=== PATIENT | female | born 1955 | race Caucasian/White ===

== ENCOUNTER 2018-02-18 12:27 | Observation (INO) ==
--- NOTE | 2018-02-18 12:39 | Emergency Department Note ---
Disposition Clinical Impression: Pneumonia Qualifiers: Pneumonia type: due to unspecified organism Laterality: right Lung location: unspecified part of lung Qualified Code(s): J18.9 - Pneumonia, unspecified organism Disposition: Home, Self-Care Condition: Fair Referrals: Eddie Holland DO [Primary Care Provider] - Forms: ED Satisfaction Letter SOB HPI - General Chief Complaint: ED Shortness of Breath/Dyspnea Stated Complaint: difficulty in breathing Time Seen by Provider: 02/18/18 12:37 Source: patient, EMS Mode of arrival: EMS Limitations: no limitations Nursing Notes Reviewed: Yes Vital Signs Reviewed: Yes - History of Present Illness Patient presents to the ED via EMS complaining of shortness of breath. She states she has been short of breath for several months but has been really sick for the past several days. She has had a dry cough as well as fever and chills , rhinorrhea and congestion. She denies any chest pain or leg swelling. No abdominal pain, nausea, vomiting, diarrhea or constipation. No sore throat. She states she has had multiple family members about been similarly sick. She also reports some body aches. She was seen at urgent care on February 15 for the symptoms and was diagnosed with bronchitis. She received IM Solu-Medrol at urgent care was prescribed azithromycin, prednisone, Flonase and Tessalon Perles for home. She states she has been taking all these medications but has continued to feel worse which is why she came to the ED today. She does have a known history of asthma and COPD as well as diabetes and hypertension. She is not a smoker. On arrival here she is febrile at 102.3. EMS states oxygen saturations were in the mid 80s on their arrival but did improve to the 90s on oxygen. On arrival here she is 91% on 3 L. She does not wear oxygen at home. She states that she does have inhalers at home that she uses regularly for her asthma and COPD. - Related Data Home Medications Medication Instructions Recorded Confirmed ALPRAZolam [Xanax 1 MG Tablet] 1 mg PO HS 03/14/16 02/17/18 Aspirin [Lo-Dose Aspirin EC] 81 mg PO DAILY 03/14/16 02/17/18 Desipramine HCl [Norpramin] 175 mg PO QPM 03/14/16 02/17/18 FLUoxetine HCl [Prozac] 20 mg PO DAILY 03/14/16 02/17/18 Oxycodone HCl/Acetaminophen 1 tab PO Q4-6H PRN 03/14/16 02/17/18 [Percocet 10-325 mg Tablet] SitaGLIPtin [Januvia] 50 mg PO DAILY 03/14/16 02/17/18 carBAMazepine [Tegretol Xr] 200 mg PO BID 03/14/16 02/17/18 Furosemide [Lasix] 40 mg PO BID 09/02/16 02/17/18 Losartan [Cozaar] 50 mg PO DAILY 09/02/16 02/17/18 Metoprolol [Lopressor] 50 mg PO BID 09/02/16 02/17/18 Potassium Chloride [K-Tab ER] 20 meq PO DAILY 09/02/16 02/17/18 amLODIPine [Norvasc] 5 mg PO DAILY 09/02/16 02/17/18 Previous Rx's Medication Instructions Recorded Acetaminophen [Tylenol] 500 mg PO Q6HR PRN #30 tablet 02/15/18 Azithromycin [Azithromycin 6-Tab 250 mg PO PER PKG DI #6 tab 02/15/18 Pack] Benzonatate [Tessalon] 200 mg PO TID PRN #45 capsule 02/15/18 Fluticasone Propionate Nasal 1 - 2 spray NS DAILY PRN #1 bottle 02/15/18 [Flonase] PredniSONE [Deltasone] 40 mg PO DAILY 5 Days #10 tablet 02/15/18 Allergies Allergy/AdvReac Type Severity Reaction Status Date / Time dulaglutide [From [facility]] AdvReac Gastrointestinal Verified 02/18/18 12:28 Upset Constitutional: Reports: fever, chills. Denies: weakness, weight change Eyes: Denies: eye pain, eye discharge, vision change ENT ED: Reports: congestion. Denies: ear pain, throat pain, dental pain, hearing loss, epistaxis, dysphagia Cardiovascular: Denies: chest pain, palpitations, dyspnea on exertion, edema, syncope Respiratory: Reports: cough, dyspnea. Denies: wheezes, hemoptysis, stridor Gastrointestinal: Denies: abdominal pain, nausea, vomiting, diarrhea, constipation, hematemesis, melena, hematochezia Genitourinary: Denies: dysuria, frequency, hematuria, discharge Musculoskeletal: Denies: back pain, neck pain, arthralgia, myalgia Integumentary: Denies: rash, abrasion, lesions Neurological: Denies: headache, weakness, numbness, paresthesias, confusion, abnormal gait, vertigo Psychiatric: Denies: anxiety, depression, suicidal thoughts, homicidal thoughts , auditory hallucinations, visual hallucinations Endocrine: Denies: fatigue Hematological/Lymphatic: Denies: easy bleeding, easy bruising Allergic/Immunologic: Denies: facial swelling, urticaria Past Medical History - Past Medical History Medical history: Reports: asthma, COPD, diabetes, hyperlipidemia, hypertension, thyroid disease Psychiatric history: Reports: anxiety - Social History Smoking Status: Never smoker Smokeless Tobacco Status: No Alcohol use: Reports: none Drug use: Reports: none Physical Exam - General Limitations: no limitations General appearance: alert, in no apparent distress, obese - Head Head exam: atraumatic, normocephalic, normal inspection - Eye Eye exam: Present: normal appearance, PERRL, EOMI - ENT ENT exam: normal exam, normal oropharynx, mucous membranes dry - Neck Neck exam: Present: normal inspection, full ROM, trachea midline - Chest Chest inspection: Present: normal inspection, symmetric chest wall rise - Respiratory Respiratory exam: Absent: respiratory distress - Expanded Respiratory Exam Location: wheezes: Left, Lower, Upper, Right, rhonchi: Left, Right, Upper, Lower - Cardiovascular Cardiovascular exam: Present: regular rate, normal rhythm, normal heart sounds - Abdominal Exam Abdominal exam: Present: soft, Non-Tender. Absent: tenderness, distention, guarding, rebound, rigidity - Extremities Exam Extremities exam: Present: normal inspection, full ROM. Absent: tenderness, pedal edema - Neurological Exam Neurological exam: Present: alert, oriented X3 - Psychiatric Psychiatric exam: Present: normal affect, normal mood - Skin Skin exam: Present: warm, dry, intact, normal color Course Course Narrative: Patient presents to the ED via EMS with worsening shortness of breath, fever and congestion with recent diagnosis of bronchitis. I suspect possibility of pneumonia or influenza given that patient is worsening with current outpatient treatment. Will perform chest x-ray, routine labs including flu swab and give a nebulizer treatment. Will also give Tylenol for her current fever. - Reevaluation(s) Reevaluation #1: Flu swab was negative. Chest x-ray shows a right-sided pneumonia. Laboratory studies show mild leukocytosis as well as some thrombocytopenia. Electrolytes are within normal limits. Fevers improving with Tylenol. Discussed with patient need for admission for further treatment of her pneumonia and she is in agreement. I have spoken to the hospitalist on-call, Dr. Grijalva, who has accepted the patient. Time: 13:59 Vital Signs Temperature 102.3 F H 02/18/18 12:29 Pulse Rate 98 02/18/18 12:29 Respiratory Rate 20 02/18/18 12:29 Blood Pressure 172/91 02/18/18 12:29 O2 Sat by Pulse Oximetry 91 02/18/18 12:29 Temperature 102.3 F H 02/18/18 12:29 Pulse Rate 101 02/18/18 12:53 Respiratory Rate 16 02/18/18 13:13 Blood Pressure 164/67 02/18/18 12:53 O2 Sat by Pulse Oximetry 95 02/18/18 13:13 Oxygen Delivery Oxygen Delivery Nasal Cannula Shortness of Breath/Dyspnea - Differential Diagnosis Likely: acute exacerbation of chronic obstructive airways disease, pneumonia - Medical Records Medical records reviewed: Yes I reviewed the patient's medical records. - Lab Data Lab results reviewed: Yes I reviewed the patient's lab results. Result diagrams: 02/18/18 13:10 02/18/18 13:10 Lab Results 02/18/18 02/18/18 02/18/18 Range/Units 13:10 13:10 13:10 WBC 11.3 H (4.3-11.1) K/mcL RBC 3.79 L (3.82-4.97) M/mcL Hgb 11.5 (11.5-15.4) g/dL Hct 34.2 L (35.3-44.9) % MCV 90.2 (83.0-100.0) fL MCH 30.3 (28.0-33.3) pg MCHC 33.6 (31.6-35.5) g/dL RDW 14.2 (11.5-14.5) % Plt Count 80 L (140-400) K/mcL MPV 9.6 (9.4-12.4) fL Immature Gran % 0.4 (0-4) % Seg Neutrophils % 81.2 % Lymphocytes % 6.5 % Monocytes % 6.0 % Eosinophils % 5.6 % Basophils % 0.3 % Neutrophils # 9.2 H (1.6-8.9) K/mcL Lymphocytes # 0.7 (0.6-4.6) K/mcL Monocytes # 0.7 (0.0-1.3) K/mcL Eosinophils # 0.6 (0.0-0.6) K/mcL Basophils # 0.0 (0.0-0.2) K/mcL Sodium 135 L (136-145) mEq/L Potassium 3.2 L (3.5-5.1) mEq/L Chloride 97 L (98-107) mEq/L Carbon Dioxide 31 H (23-29) mEq/L BUN 16 (8-23) mg/dL Creatinine 1.08 (0.60-1.20) mg/dL Est GFR ( Amer) > 60 (> 60) Est GFR (Non-Af Amer) 51 L (> 60) BUN/Creatinine Ratio 15 (6-26) Glucose 190 H (70-105) mg/dL Calculated Osmolality 286 (280-300) Lactic Acid 1.4 (0.5-2.2) mmol/L Calcium 9.0 (8.6-10.3) mg/dL B-Natriuretic Peptide (Less than 100) pg/mL 02/18/18 Range/Units 13:10 WBC (4.3-11.1) K/mcL RBC (3.82-4.97) M/mcL Hgb (11.5-15.4) g/dL Hct (35.3-44.9) % MCV (83.0-100.0) fL MCH (28.0-33.3) pg MCHC (31.6-35.5) g/dL RDW (11.5-14.5) % Plt Count (140-400) K/mcL MPV (9.4-12.4) fL Immature Gran % (0-4) % Seg Neutrophils % % Lymphocytes % % Monocytes % % Eosinophils % % Basophils % % Neutrophils # (1.6-8.9) K/mcL Lymphocytes # (0.6-4.6) K/mcL Monocytes # (0.0-1.3) K/mcL Eosinophils # (0.0-0.6) K/mcL Basophils # (0.0-0.2) K/mcL Sodium (136-145) mEq/L Potassium (3.5-5.1) mEq/L Chloride (98-107) mEq/L Carbon Dioxide (23-29) mEq/L BUN (8-23) mg/dL Creatinine (0.60-1.20) mg/dL Est GFR ( Amer) (> 60) Est GFR (Non-Af Amer) (> 60) BUN/Creatinine Ratio (6-26) Glucose (70-105) mg/dL Calculated Osmolality (280-300) Lactic Acid (0.5-2.2) mmol/L Calcium (8.6-10.3) mg/dL B-Natriuretic Peptide 353 H (Less than 100) pg/mL - Radiology Data Radiology results reviewed: Yes I reviewed the patient's radiology results. ITS Impressions Chest X-Ray 02/18/18 12:53 IMPRESSION: Airspace opacification seen in the right lung with a nodular appearance. Pneumonia could give this appearance. However, a chest CT is suggested to evaluate for pulmonary nodules D/ / Oscar Levin MD / Oscar Levin MD Interpreting Provider: Oscar Leivn MD
[2018-02-18] MEDS ORDERED: Levofloxacin 750 MG/150 ML 750 MG/150 ML BAG IVPB ONE (12:53)
[2018-02-18] MEDS ORDERED: Ipratropium/Albuterol Neb 3 ML IH ONE (12:53)
[2018-02-18] MEDS ORDERED: methylPREDNISolone 125 MG/2 ML VIAL IVP ONE (12:53)
[2018-02-18 13:19] LABS: Basophils % 0.3 %; Eosinophils # 0.6 K/mcL (0.0-0.6); Eosinophils % 5.6 %; Hematocrit 34.2 % (35.3-44.9); Hemoglobin 11.5 g/dL (11.5-15.4); Immature Granulocytes % 0.4 % (0-4); Lymphocytes # 0.7 K/mcL (0.6-4.6); Lymphocytes % 6.5 %; Mean Corpuscular HGB Conc 33.6 g/dL (31.6-35.5); Mean Corpuscular Hemoglobin 30.3 pg (28.0-33.3); Mean Corpuscular Volume 90.2 fL (83.0-100.0); Mean Platelet Volume 9.6 fL (9.4-12.4); Monocytes # 0.7 K/mcL (0.0-1.3); Neutrophils # 9.2 K/mcL (1.6-8.9); Platelet Count 80 K/mcL (140-400); Red Blood Count 3.79 M/mcL (3.82-4.97); Red Cell Distribution Width 14.2 % (11.5-14.5); Segmented Neutrophils % 81.2 %
[2018-02-18 13:37] LABS: BUN/Creatinine Ratio 15 (6-26); Blood Urea Nitrogen 16 mg/dL (8-23); Carbon Dioxide 31 mEq/L (23-29); Chloride 97 mEq/L (98-107); Glucose 190 mg/dL (70-105); Osmolality,Calculated 286 (280-300); Potassium 3.2 mEq/L (3.5-5.1); Sodium 135 mEq/L (136-145); eGFR For Non-African Americans 51 (> 60)
[2018-02-18] MEDS ORDERED: Naloxone 0.4 MG/ML INJ IVP PRN ×2 (14:36→15:29)
[2018-02-18] MEDS ORDERED: *HR* Dextrose 50 % in Water (Syg) 50 ML SYRINGE IVP PRN ×2 (14:38→15:29)
[2018-02-18] MEDS ORDERED: D5% in Water 1,000 ML IVC PRN ×2 (14:38→15:29)
[2018-02-18] MEDS ORDERED: Dextrose Gel 15 GM/37.5 ML TUBE PO PRN ×4 (14:38→15:29)
[2018-02-18] MEDS ORDERED: Fluticasone Propionate Nasal 50 MCG/SPRAY BOTTLE NS PRN ×2 (14:39→15:29)
[2018-02-18] MEDS ORDERED: Benzonatate 100 MG CAPSULE PO PRN ×2 (14:39→15:29)
[2018-02-18] MEDS ORDERED: *HR* OxyCODONE/APAP 10/325 TABLET PO PRN ×2 (14:39→15:29)
[2018-02-18] MEDS ORDERED: Insulin LISPRO 300 UNITS/3 ML VIAL SQ SCH ×3 (16:30→21:00)
[2018-02-18] MEDS: Insulin LISPRO 300 UNITS/3 ML VIAL SQ SCH (16:48)
[2018-02-18] MEDS: Furosemide 40 MG TABLET PO SCH (16:48)
[2018-02-18] MEDS ORDERED: Furosemide 40 MG TABLET PO SCH (17:00)
[2018-02-18] MEDS ORDERED: DESIPRAMINE HCL PO SCH ×2 (18:00)
[2018-02-18] MEDS ORDERED: ALPRAZolam 1 MG TABLET PO SCH ×2 (21:00)
[2018-02-19 06:06] LABS: Magnesium 2.2 mg/dL (1.6-2.6)
[2018-02-19] MEDS ORDERED: Insulin DETEMIR 100 UNIT/ML X5UNITS SQ SCH ×2 (09:00)
[2018-02-19] MEDS ORDERED: FLUoxetine 20 MG CAPSULE PO SCH ×2 (09:00)
[2018-02-19] MEDS ORDERED: NON-FORMULARY MEDICATION 1 EACH EACH (Insulin Glargine,Hum.Rec.Anlog [Basaglar Kwikpen U-1 SQ SCH (09:00)
[2018-02-19] MEDS ORDERED: *HR* SitaGLIPtin 25 MG TABLET PO SCH ×2 (09:00)
[2018-02-19] MEDS ORDERED: Aspirin Enteric Coated 81 MG Tablet PO SCH ×2 (09:00)
[2018-02-19 09:01] VITALS: BP 151/72
[2018-02-19] MEDS: Furosemide 40 MG TABLET PO SCH (09:13)
[2018-02-19] MEDS: Insulin LISPRO 300 UNITS/3 ML VIAL SQ SCH ×2 (09:42→12:09)
--- NOTE | 2018-02-19 10:49 | Internal Med History&Physical ---
Date of Encounter: 02/19/18 Time of Encounter: 10:15 Assessment and Plan (1) Pneumonia Current visit: Yes Status: Acute Chest CT showed patchy multifocal pneumonia bilaterally. She was given Rocephin in emergency room. Antibiotics and probiotics will be continued. Qualifiers: Pneumonia type: due to unspecified organism Laterality: bilateral Lung location: unspecified part of lung Qualified Code(s): J18.9 - Pneumonia, unspecified organism (2) Hypertension Current visit: No Status: Chronic Continue Cozaar and Lopressor. Qualifiers: Hypertension type: essential hypertension Qualified Code(s): I10 - Essential (primary) hypertension (3) Diabetes mellitus Current visit: No Status: Chronic Hemoglobin A1c was 6.3% on 12/06/2017. 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 (5) Iron deficiency anemia due to chronic blood loss Current visit: No Status: Acute She reports home use of ferrous sulfate although this is not listed on her home med list. Internal Medicine - H&P: HPI Chief complaint: Cough and dyspnea Admitted From: Emergency Dept Plans for Post Hospital Care: Home History of present illness: Ms. Mora is a 62 year old female who came to emergency room stating she had gone to a local urgent care on February 15 for dyspnea and cough. She was prescribed Z-Roge, prednisone, Flonase, and Tessalon. She did not feel improved after 2 days so she returned to urgent care without further intervention. When she felt no improvement the next day with increased dyspnea and cough she came to emergency room. She was felt to have pneumonia and was admitted to [facility] floor for ongoing care needs. She reports having pneumonia several years ago. Her respiratory history is significant for being a lifelong nonsmoker. She denies chronic lung disease. She has KAMILA but does not use CPAP/BiPAP. She feels improved at present time and wishes to be discharged home. 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 HEART MURMUR. SLEEP APNEA. Psychiatric history: anxiety - Past Surgical History Additional surgical history: right knee sx - Social History Smoking Status: Never smoker Smokeless Tobacco Status: No Alcohol use: none Drug use: none - Family History Mother Hx Family Respiratory Disorders: Yes (copd) Father Hx Family Cardiac Disorders: Yes ([place]) Hx Family Respiratory Disorders: Yes (COPD) Hx Family Endocrine Disorder: Yes (DM) Internal Medicine - H&P: Meds ALPRAZolam [Xanax 1 MG Tablet] 1 mg PO HS 03/14/16 [History] Aspirin [Lo-Dose Aspirin EC] 81 mg PO DAILY 03/14/16 [History] Desipramine HCl [Norpramin] 175 mg PO QPM 03/14/16 [History] FLUoxetine HCl [Prozac] 20 mg PO DAILY 03/14/16 [History] Oxycodone HCl/Acetaminophen [Percocet 10-325 mg Tablet] 1 tab PO Q4-6H PRN 03/14 [History] SitaGLIPtin [Januvia] 50 mg PO DAILY 03/14/16 [History] Furosemide [Lasix] 40 mg PO BID 09/02/16 [History] Losartan [Cozaar] 50 mg PO DAILY 09/02/16 [History] Potassium Chloride [K-Tab ER] 20 meq PO DAILY 09/02/16 [History] Azithromycin [Azithromycin 6-Tab Pack] 250 mg PO PER PKG DI #6 tab 02/15/18 [Rx] Benzonatate [Tessalon] 200 mg PO TID PRN #45 capsule 02/15/18 [Rx] Fluticasone Propionate Nasal [Flonase] 1 - 2 spray NS DAILY PRN #1 bottle [Rx] PredniSONE [Deltasone] 40 mg PO DAILY 5 Days #10 tablet 02/15/18 [Rx] Exenatide Microspheres [Bydureon Pen] 2 mg SQ QWEEK 02/18/18 [History] Insulin Glargine,Hum.rec.anlog [Basaglar Kwikpen U-100] 50 unit SQ DAILY [History] Pantoprazole Sodium [Protonix] 40 mg PO DAILY 02/18/18 [History] Desipramine [Norpramine] 50 mg PO HS 02/19/18 [History] Metoprolol [Lopressor] 100 mg PO DAILY 02/19/18 [History] carBAMazepine [Tegretol] 200 mg PO BID 02/19/18 [History] 3 Allergy/AdvReac Type Severity Reaction Status Date / Time dulaglutide [From Trulicity] AdvReac Gastrointestinal Verified 02/18/18 12:28 Upset All Systems PM: A 10-system review of systems was performed and is negative for pertinent findings except as documented above in the HPI. Review of systems: Gen.: She states her weight has decreased approximately 60 pounds in the past year, intentionally Cardiovascular: She has history of hypertension. She reports negative heart cath approximately 2010. She had echocardiogram 10/27/2017 which showed LVEF of 60-65% with reported mild LV diastolic dysfunction. The E/A ratio was 0.9. There was moderate aortic stenosis and mild aortic regurgitation. The interventricular septum and posterior wall thickness measurements were elevated at 1.30 and 1.20 cm respectively. There was LAE at 4.10 cm. She denies DVT or pulmonary embolus. Respiratory: As per history of present illness GI: She has had cholecystectomy. She denies disorders of her liver or exocrine pancreas. : She was unaware she had chronic kidney disease. She denies other kidney or bladder disorders. Neurologic: She denies large distribution strokes or seizures. Endocrine: She reports being diagnosed with DM 2 approximately age 42. She denies thyroid disease or hyperlipidemia Hematology/oncology: She has history of anemia. She denies internal malignancies or other blood disorders Psychiatric: She has anxiety and bipolar disorder. [place] skeletal: She has DJD but denies gout or other bone joint or muscle disorders. - Constitutional Vitals: Temp Pulse Resp BP Pulse Ox 98.1 F 84 17 151/72 99 02/19/18 06:00 02/19/18 09:00 02/19/18 06:00 02/19/18 09:00 02/19/18 09:00 Exam: Gen.: She is a well-developed well-nourished female resting in bed who appears in no acute distress HEENT: Head is atraumatic and normocephalic. Eyes: EOMI. There is no scleral icterus. Mouth: Mucosa is moist. Neck: Supple and nontender. There is no thyromegaly or adenopathy noted. Heart: Regular without murmurs gallops or ectopics Lungs: No wheezes, egophony or crackles are heard. Abdomen: Soft and nontender. No masses or guarding are noted. Extremities: There is no cyanosis edema or clubbing noted. Dorsalis pedis and posttibial pulses are trace to 1+ palpable bilaterally. Neurologic: Mental status: She is talkative and a good historian. Cranial nerves: Smile is symmetric. Forehead wrinkles bilaterally. Tongue protrudes midline. EOMI. Motor: There is no pronator drift. Cerebellar: Finger to nose is intact bilaterally. Skin: Warm and dry Internal Med - H&P Results - Labs CBC & Chem 7: 02/18/18 13:10 02/18/18 13:10 - Impressions ITS Impressions Chest CT 02/18/18 18:38 IMPRESSION: Patchy multifocal pneumonia involving each lung. Mild splenomegaly. RECOMMENDATIONS: Repeat CT scan in 1-2 months suggested to document complete clearing of the pulmonary abnormalities. D/ / Markie Marquis MD / Markie Marquis MD Interpreting Provider: Markie Marquis MD - VTE Reasons for not Prescribing Prophylaxis: Treatment not Indicated - Low risk for VTE
--- NOTE | 2018-02-19 11:05 | Discharge Summary ---
Date of Encounter: 02/19/18 Time of Encounter: 10:15 - Discharge Diagnosis (1) Pneumonia Priority: Primary Status: Acute Qualifiers: Pneumonia type: due to unspecified organism Laterality: bilateral Lung location: unspecified part of lung Qualified Code(s): J18.9 - Pneumonia, unspecified organism (2) Hypertension Priority: Secondary Status: Chronic Qualifiers: Hypertension type: essential hypertension Qualified Code(s): I10 - Essential (primary) hypertension (3) Diabetes mellitus Priority: Secondary Status: Chronic Qualifiers: Diabetes mellitus type: type 2 Diabetes mellitus retirement insulin use: unspecified retirement insulin use status Diabetes mellitus complication status : with unspecified complications Qualified Code(s): E11.8 - Type 2 diabetes mellitus with unspecified complications (4) Hypokalemia Priority: Secondary Status: Acute (5) Iron deficiency anemia due to chronic blood loss Priority: Secondary Status: Acute Hospital course: Ms. Mora is a 62 year old female who came to emergency room stating she had gone to a local urgent care on February 15 for dyspnea and cough. She was prescribed Z-Roge, prednisone, Flonase, and Tessalon. She did not feel improved after 2 days so she returned to urgent care without further intervention. When she felt no improvement the next day with increased dyspnea and cough she came to emergency room. She was felt to have pneumonia and was admitted to [facility] for ongoing care needs. Initial orders were written by the emergency room physician. I saw her on February 19 and performed the history physical and discharge. I reviewed her chest CT with her which showed patchy multifocal pneumonia bilaterally. She will complete the prescribed Z-Roge given her as an outpatient and also be given Ceftin 500 mg twice a day with lactobacillus for 5 days. She admitted she was not taking her potassium supplement regularly. Her PCP can follow up on the hypokalemia. She was given additional supplementation during her hospital stay. She reported home use of ferrous sulfate although this medication was not on her recorded home med list. Iron testing showed iron 15, transferrin saturation 5%, transferrin 197. Her PCP can follow up on this. She will follow with her PCP Dr. Holland within 1 week. Room air oximetry will be checked on 6 minute walk prior to discharge. - Time Spent with Patient Total time spent providing and/or coordinating discharge services: - Discharge Medications Prescriptions: Cefuroxime PO [Ceftin] 500 mg PO Q12HR #10 tablet Lactobacillus [Culturelle] 1 each PO BID #10 cap.sprink Home Medications: ALPRAZolam [Xanax 1 MG Tablet] 1 mg PO HS 03/14/16 [History] Aspirin [Lo-Dose Aspirin EC] 81 mg PO DAILY 03/14/16 [History] Desipramine HCl [Norpramin] 175 mg PO QPM 03/14/16 [History] FLUoxetine HCl [Prozac] 20 mg PO DAILY 03/14/16 [History] Oxycodone HCl/Acetaminophen [Percocet 10-325 mg Tablet] 1 tab PO Q4-6H PRN 03/14 [History] SitaGLIPtin [Januvia] 100 mg PO DAILY 03/14/16 [History] Furosemide [Lasix] 80 mg PO DAILY 09/02/16 [History] Losartan [Cozaar] 50 mg PO DAILY 09/02/16 [History] Potassium Chloride [K-Tab ER] 20 meq PO DAILY 09/02/16 [History] Azithromycin [Azithromycin 6-Tab Pack] 250 mg PO PER PKG DI #6 tab 02/15/18 [Rx] Benzonatate [Tessalon] 200 mg PO TID PRN #45 capsule 02/15/18 [Rx] Fluticasone Propionate Nasal [Flonase] 1 - 2 spray NS DAILY PRN #1 bottle [Rx] Exenatide Microspheres [Bydureon Pen] 2 mg SQ QWEEK 02/18/18 [History] Insulin Glargine,Hum.rec.anlog [Basaglar Kwikpen U-100] 50 unit SQ DAILY [History] Pantoprazole Sodium [Protonix] 40 mg PO DAILY 02/18/18 [History] Cefuroxime PO [Ceftin] 500 mg PO Q12HR #10 tablet 02/19/18 [Rx] Desipramine [Norpramine] 50 mg PO HS 02/19/18 [History] Lactobacillus [Culturelle] 1 each PO BID #10 cap.sprink 02/19/18 [Rx] Metoprolol [Lopressor] 100 mg PO DAILY 02/19/18 [History] carBAMazepine [Tegretol] 200 mg PO BID 02/19/18 [History] Allergies/Adverse Reactions: 3 Allergy/AdvReac Type Severity Reaction Status Date / Time dulaglutide [From Trulicity] AdvReac Gastrointestinal Verified 02/18/18 12:28 Upset Date of admission: 02/18/18 14:44 Primary care physician: Eddie Holland DO - Constitutional Vitals: Temp Pulse Resp BP Pulse Ox 98.1 F 84 17 151/72 99 02/19/18 06:00 02/19/18 09:00 02/19/18 06:00 02/19/18 09:00 02/19/18 09:00 - Patient Status Disposition: Home, Self-Care Condition: Fair - Discharge Instructions Follow Up With: Eddie Holland DO [Primary Care Provider] - 1 week - Diet and Activity Activity: resume usual activities as tolerated Diet: diabetic diet - VTE Reasons for not Prescribing Prophylaxis: Treatment not Indicated - Low risk for VTE
[2018-02-20] MEDS ORDERED: BYDUREON SQ SCH (09:00)
[2018-02-21] MEDS ORDERED: BYDUREON SQ SCH (09:00)
== END 2018-02-19 12:35 | disposition home or self-care (01) ==
LOC: EMEROOPIK 12:27 → INPPIK 12:27
PROVIDERS: ADMIT Internal Medicine; ATTEND Internal Medicine

== ENCOUNTER 2019-05-13 15:10 | Inpatient (IN) ==
[2019-05-13] MEDS ORDERED: 0.9 % Sodium Chloride 1,000 ML IVC ONE (15:14)
[2019-05-13 15:46] LABS: Basophils % 0.3 %; Eosinophils % 0.3 %; Hematocrit 35.3 % (35.3-44.9); Hemoglobin 12.1 g/dL (11.5-15.4); Immature Granulocytes % 0.3 % (0-4); Lymphocytes # 0.4 K/mcL (0.6-4.6); Lymphocytes % 6.4 %; Mean Corpuscular HGB Conc 34.3 g/dL (31.6-35.5); Mean Corpuscular Hemoglobin 32.1 pg (28.0-33.3); Mean Corpuscular Volume 93.6 fL (83.0-100.0); Mean Platelet Volume 10.1 fL (9.4-12.4); Monocytes # 0.4 K/mcL (0.0-1.3); Monocytes % 6.4 %; Neutrophils # 5.6 K/mcL (1.6-8.9); Red Blood Count 3.77 M/mcL (3.82-4.97); Red Cell Distribution Width 13.8 % (11.5-14.5); Segmented Neutrophils % 86.3 %; White Blood Count 6.5 K/mcL (4.3-11.1)
[2019-05-13 15:55] LABS: INR 1.2
[2019-05-13 15:58] LABS: Activated Partial Thrombo Time 32.5 Seconds (26.0-36.0)
[2019-05-13 16:01] LABS: Platelet Count 59 K/mcL (140-400)
[2019-05-13 16:06] LABS: Alanine Aminotransferase 16 Units/L (7-52); Albumin 3.4 g/dL (3.5-5.7); Albumin/Globulin Ratio 0.8 (1.1-2.2); Alkaline Phosphatase 71 Units/L (34-104); Aspartate Amino Transferase 31 Units/L (13-39); BUN/Creatinine Ratio 16 (6-26); Bilirubin,Direct 0.3 mg/dL (0.0-0.2); Bilirubin,Indirect 0.6 mg/dL (0.0-1.0); Bilirubin,Total 0.9 mg/dL (0.3-1.0); Blood Urea Nitrogen 22 mg/dL (8-23); Calcium 9.4 mg/dL (8.6-10.3); Carbon Dioxide 29 mEq/L (23-29); Chloride 96 mEq/L (98-107); Ethanol < 10 mg/dL (Less than 10); Globulin 4.1 g/dL (2.4-3.5); Glucose 242 mg/dL (70-105); Osmolality,Calculated 287 (280-300); Potassium 3.8 mEq/L (3.5-5.1); Sodium 133 mEq/L (136-145); Total Protein 7.5 g/dL (6.4-8.9); eGFR For African Americans 47 (> 60); eGFR For Non-African Americans 39 (> 60)
[2019-05-13 16:09] LABS: Troponin I < 0.03 ng/mL (< 0.04)
[2019-05-13 16:18] LABS: Platelet Estimate Marked Decrease (Normal)
[2019-05-13 16:27] LABS: Bilirubin,Urine Negative (Negative); Blood,Urine Negative (Negative); Clarity,Urine Clear (Clear); Color,Urine Yellow (Yellow); Glucose,Urine (UA) Normal (Normal); Ketones,Urine Negative (Negative); Leukocyte Esterase,Urine Negative (Negative); Nitrite,Urine Negative (Negative); Protein,Urine Negative (Neg-Trace); Urobilinogen,Urine Normal (Normal)
[2019-05-13 17:15] LABS: Amphetamine Screen,Urine Negative ng/mL (Cutoff=1000); Barbiturate Screen,Urine Negative ng/mL (Cutoff=200); Benzodiazepines Screen,Urine Negative ng/mL (Cutoff=200); Cannabinoid Screen,Urine Negative ng/mL (Cutoff = 50); Cocaine Screen,Urine Negative ng/mL (Cutoff= 300); Opiate Screen,Urine Negative ng/mL (Cutoff=300); Phencyclidine Screen,Urine Negative ng/mL (Cutoff=25)
[2019-05-13 17:25] LABS: ABG Base Excess 2 mEq/L (-2 to 3); ABG HCO3 25 mEq/L (21-27); ABG Oxygen Saturation 93 % (95-98); ABG PCO2 35 mmHg (35-45); ABG PH 7.47 pH Units (7.32-7.45); ABG PO2 63 mmHg (85-104); ABG TCO2 26 mEq/L (20-26)
[2019-05-13] MEDS ORDERED: Ondansetron ODT 4 MG TAB.RAPDIS SL PRN (18:49)
[2019-05-13] MEDS ORDERED: D5% in Water 1,000 ML IVC PRN (19:41)
[2019-05-13] MEDS ORDERED: Dextrose Gel 15 GM/37.5 ML TUBE PO PRN ×2 (19:41)
[2019-05-13] MEDS ORDERED: *HR* Dextrose 50 % in Water (Syg) 50 ML SYRINGE IVP PRN (19:41)
[2019-05-13] MEDS ORDERED: Ipratropium/Albuterol Neb 3 ML IH PRN (19:50)
[2019-05-13] MEDS ORDERED: 0.9 % Sodium Chloride 1,000 ML ONE (21:19)
[2019-05-13] MEDS: CEFTRIAXONE IVPB SCH (21:33)
[2019-05-13] MEDS: SODIUM CHLORIDE MINI 0.9% IVPB SCH (21:33)
[2019-05-13] MEDS: 0.9 % Sodium Chloride 1,000 ML IVC SCH (21:35)
[2019-05-13] MEDS: Azithromycin 500 MG in 0.9 % Sodium Chloride 250 ML IVPB SCH (21:35)
[2019-05-13] MEDS: Insulin LISPRO 300 UNITS/3 ML VIAL SQ SCH ×2 (22:00→22:01)
[2019-05-14] MEDS: 0.9 % Sodium Chloride 1,000 ML IVC SCH ×3 (02:19→20:27)
[2019-05-14] MEDS ORDERED: Acetaminophen 650 MG RECTAL SUPP RC PRN (05:04)
[2019-05-14] MEDS ORDERED: Acetaminophen IV 1,000 MG/100 ML INFUS..BTL IVPB ONE (05:12)
[2019-05-14] MEDS ORDERED: Acetaminophen IV 1,000 MG/100 ML INFUS..BTL ONE (05:40)
[2019-05-14] MEDS: *HR* Enoxaparin 40 MG/0.4 ML SYRINGE SQ SCH (05:46)
[2019-05-14 06:22] LABS: Hematocrit 30.1 % (35.3-44.9); Hemoglobin 10.3 g/dL (11.5-15.4); Mean Corpuscular HGB Conc 34.2 g/dL (31.6-35.5); Mean Corpuscular Hemoglobin 31.7 pg (28.0-33.3); Mean Corpuscular Volume 92.6 fL (83.0-100.0); Red Blood Count 3.25 M/mcL (3.82-4.97); Red Cell Distribution Width 13.3 % (11.5-14.5); White Blood Count 6.8 K/mcL (4.3-11.1)
[2019-05-14 06:26] LABS: Platelet Count 49 K/mcL (140-400)
[2019-05-14 06:42] LABS: Albumin 2.9 g/dL (3.5-5.7); Albumin/Globulin Ratio 0.8 (1.1-2.2); Bilirubin,Total 0.9 mg/dL (0.3-1.0); Calcium 8.8 mg/dL (8.6-10.3); Globulin 3.5 g/dL (2.4-3.5); Potassium 3.5 mEq/L (3.5-5.1); Total Protein 6.4 g/dL (6.4-8.9)
[2019-05-14] MEDS ORDERED: Lactulose Oral Soln 20 GM/30 ML UDC PO SCH (07:45)
[2019-05-14] MEDS ORDERED: 0.9 % Sodium Chloride 500 ML IV ONE ×2 (07:46→11:00)
[2019-05-14] MEDS: SODIUM CHLORIDE MINI 0.9% IVPB SCH (08:41)
[2019-05-14] MEDS: CEFTRIAXONE IVPB SCH (08:41)
[2019-05-14] MEDS: Lactulose Oral Soln 20 GM/30 ML UDC PO SCH ×3 (08:50→20:23)
[2019-05-14] MEDS: Insulin LISPRO 300 UNITS/3 ML VIAL SQ SCH ×4 (08:51→20:38)
[2019-05-14] MEDS ORDERED: *HR* Dextrose 50 % in Water (Vial) 50 ML VIAL IVP PRN (09:00)
[2019-05-14 10:54] LABS: Adenovirus Not Detected (Not Detect); Bordetella Pertussis Not Detected (Not Detect); Chlamydophila pneumoniae Not Detected (Not Detect); Coronavirus 229E Not Detected (Not Detect); Coronavirus HKU1 Not Detected (Not Detect); Coronavirus NL63 Not Detected (Not Detect); Coronavirus OC43 Not Detected (Not Detect); Human Metapneumovirus Not Detected (Not Detect); Human Rhinovirus/Enterovirus Not Detected (Not Detect); Influenza A Subtype 2009 H1 Not Detected (Not Detect); Influenza A Untypeable Not Detected (Not Detect); Influenza B Not Detected (Not Detect); Mycoplasma pneumoniae Not Detected (Not Detect); Parainfluenza Virus 1 Not Detected (Not Detect); Parainfluenza Virus 2 Not Detected (Not Detect); Parainfluenza Virus 3 Not Detected (Not Detect); Parainfluenza Virus 4 Not Detected (Not Detect); Respiratory Syncytial Virus Not Detected (Not Detect)
[2019-05-14 11:15] LABS: Enterococcus by PCR Not Detected (Not Detect); Staphylococcus aureus by PCR Not Detected (Not Detect); Staphylococcus by PCR Not Detected (Not Detect); Streptococcus agalactiae(B)PCR Not Detected (Not Detect); blaKPC Carbapenem-Resist Gene Not Detected (Not Detect); mecA Methicillin-Resist Gene Not Detected (Not Detect); vanA/B Vancomycin-Resist Genes Not Detected (Not Detect)
[2019-05-14 11:16] LABS: Acinetobacter baumannii by PCR Not Detected (Not Detect); Candida albicans by PCR Not Detected (Not Detect); Candida glabrata by PCR Not Detected (Not Detect); Candida krusei by PCR Not Detected (Not Detect); Candida parapsilosis by PCR Not Detected (Not Detect); Candida tropicalis by PCR Not Detected (Not Detect); Enterobacter cloacae Cmplx PCR Not Detected (Not Detect); Enterobacteriaceae by PCR Not Detected (Not Detect); Escherichia coli by PCR Not Detected (Not Detect); Klebsiella oxytoca by PCR Not Detected (Not Detect); Klebsiella pneumoniae by PCR Not Detected (Not Detect); Proteus by PCR Not Detected (Not Detect); Pseudomonas aeruginosa by PCR Not Detected (Not Detect); Serratia marcescens by PCR Not Detected (Not Detect); Streptococcus pneumoniae PCR DETECTED (Not Detect); Streptococcus pyogenes (A) PCR Not Detected (Not Detect)
[2019-05-14] MEDS ORDERED: 0.9 % Sodium Chloride 1,000 ML ONE (20:18)
[2019-05-14] MEDS: Azithromycin 500 MG in 0.9 % Sodium Chloride 250 ML IVPB SCH (20:32)
[2019-05-15] MEDS: 0.9 % Sodium Chloride 1,000 ML IVC SCH (03:22)
[2019-05-15] MEDS: *HR* Enoxaparin 40 MG/0.4 ML SYRINGE SQ SCH (04:56)
[2019-05-15 06:34] LABS: Hemoglobin 10.2 g/dL (11.5-15.4); Mean Corpuscular HGB Conc 32.9 g/dL (31.6-35.5); Mean Corpuscular Hemoglobin 31.3 pg (28.0-33.3); Mean Corpuscular Volume 95.1 fL (83.0-100.0); Mean Platelet Volume 9.3 fL (9.4-12.4); Red Blood Count 3.26 M/mcL (3.82-4.97); Red Cell Distribution Width 13.8 % (11.5-14.5); White Blood Count 5.2 K/mcL (4.3-11.1)
[2019-05-15 06:50] LABS: Platelet Count 44 K/mcL (140-400)
[2019-05-15 06:59] LABS: BUN/Creatinine Ratio 14 (6-26); Blood Urea Nitrogen 15 mg/dL (8-23); Calcium 8.8 mg/dL (8.6-10.3); Carbon Dioxide 27 mEq/L (23-29); Chloride 105 mEq/L (98-107); Glucose 218 mg/dL (70-105); Osmolality,Calculated 291 (280-300); Potassium 3.5 mEq/L (3.5-5.1); Sodium 137 mEq/L (136-145); eGFR For African Americans > 60 (> 60); eGFR For Non-African Americans 51 (> 60)
[2019-05-15] MEDS: Insulin LISPRO 300 UNITS/3 ML VIAL SQ SCH ×4 (08:22→21:05)
[2019-05-15] MEDS: Lactulose Oral Soln 20 GM/30 ML UDC PO SCH ×2 (08:23→20:43)
[2019-05-15] MEDS: cefTRIAXone 2,000 MG in Water for inj. (sterile) 20 ML IVPB SCH (09:55)
[2019-05-15] MEDS ORDERED: ALPRAZolam 1 MG TABLET PO PRN (17:47)
[2019-05-15] MEDS: carBAMazepine 200 MG TABLET PO SCH (20:43)
[2019-05-15] MEDS: Azithromycin 500 MG in 0.9 % Sodium Chloride 250 ML IVPB SCH (20:43)
[2019-05-16] MEDS: *HR* Enoxaparin 40 MG/0.4 ML SYRINGE SQ SCH (05:16)
[2019-05-16 07:05] LABS: Hematocrit 30.4 % (35.3-44.9); Hemoglobin 10.1 g/dL (11.5-15.4); Mean Corpuscular HGB Conc 33.2 g/dL (31.6-35.5); Mean Corpuscular Hemoglobin 31.3 pg (28.0-33.3); Mean Corpuscular Volume 94.1 fL (83.0-100.0); Mean Platelet Volume 10.2 fL (9.4-12.4); Red Blood Count 3.23 M/mcL (3.82-4.97); Red Cell Distribution Width 13.5 % (11.5-14.5); White Blood Count 4.2 K/mcL (4.3-11.1)
[2019-05-16 07:21] LABS: Platelet Count 58 K/mcL (140-400)
[2019-05-16 07:24] LABS: BUN/Creatinine Ratio 13 (6-26); Blood Urea Nitrogen 12 mg/dL (8-23); Carbon Dioxide 27 mEq/L (23-29); Chloride 107 mEq/L (98-107); Glucose 201 mg/dL (70-105); Osmolality,Calculated 293 (280-300); Potassium 3.8 mEq/L (3.5-5.1); Sodium 139 mEq/L (136-145); eGFR For African Americans > 60 (> 60); eGFR For Non-African Americans 60 (> 60)
[2019-05-16] MEDS ORDERED: Furosemide 40 MG TABLET PO SCH (08:00)
[2019-05-16] MEDS: Lactulose Oral Soln 20 GM/30 ML UDC PO SCH (08:06)
[2019-05-16] MEDS: cefTRIAXone 2,000 MG in Water for inj. (sterile) 20 ML IVPB SCH (08:06)
[2019-05-16] MEDS: Insulin LISPRO 300 UNITS/3 ML VIAL SQ SCH (08:07)
[2019-05-16] MEDS: carBAMazepine 200 MG TABLET PO SCH (08:07)
[2019-05-16] MEDS ORDERED: FLUoxetine 20 MG CAPSULE PO SCH (09:00)
[2019-05-16 10:31] VITALS: BP 144/64
== END 2019-05-16 12:10 | disposition home or self-care (01) | DRG 194 ==
LOC: INPPIK 15:10 → EMEROOPIK 15:10 → INPPIK 19:36
PROVIDERS: ADMIT Family Medicine; ATTEND Family Medicine

== ENCOUNTER 2019-05-25 03:00 | Inpatient (IN) ==
[2019-05-25] MEDS ORDERED: Furosemide 40 MG/4 ML VIAL IVP ONE (03:14)
[2019-05-25] MEDS ORDERED: Ipratropium/Albuterol Neb 3 ML IH ONE (03:14)
[2019-05-25 03:57] LABS: Basophils % 0.3 %; Eosinophils % 0.4 %; Hemoglobin 10.2 g/dL (11.5-15.4); Immature Granulocytes % 0.5 % (0-4); Lymphocytes # 0.5 K/mcL (0.6-4.6); Lymphocytes % 5.2 %; Mean Corpuscular Volume 91.2 fL (83.0-100.0); Mean Platelet Volume 9.9 fL (9.4-12.4); Monocytes # 0.6 K/mcL (0.0-1.3); Monocytes % 5.6 %; Neutrophils # 8.6 K/mcL (1.6-8.9); Red Blood Count 3.29 M/mcL (3.82-4.97); Red Cell Distribution Width 13.4 % (11.5-14.5); White Blood Count 9.8 K/mcL (4.3-11.1)
[2019-05-25 04:12] LABS: Platelet Count 72 K/mcL (140-400)
[2019-05-25 04:20] LABS: Alanine Aminotransferase 12 Units/L (7-52); Albumin 2.9 g/dL (3.5-5.7); Albumin/Globulin Ratio 0.8 (1.1-2.2); Alkaline Phosphatase 52 Units/L (34-104); Aspartate Amino Transferase 25 Units/L (13-39); BUN/Creatinine Ratio 18 (6-26); Bilirubin,Total 1.1 mg/dL (0.3-1.0); Blood Urea Nitrogen 17 mg/dL (8-23); Calcium 8.7 mg/dL (8.6-10.3); Carbon Dioxide 28 mEq/L (23-29); Chloride 100 mEq/L (98-107); Globulin 3.8 g/dL (2.4-3.5); Glucose 170 mg/dL (70-105); Osmolality,Calculated 286 (280-300); Potassium 4.2 mEq/L (3.5-5.1); Sodium 135 mEq/L (136-145); Total Protein 6.7 g/dL (6.4-8.9); eGFR For African Americans > 60 (> 60); eGFR For Non-African Americans > 60 (> 60)
[2019-05-25 04:39] LABS: Bilirubin,Urine Negative (Negative); Blood,Urine Negative (Negative); Clarity,Urine Clear (Clear); Color,Urine Yellow (Yellow); Glucose,Urine (UA) Normal (Normal); Ketones,Urine Negative (Negative); Leukocyte Esterase,Urine Negative (Negative); Nitrite,Urine Negative (Negative); PH,Urine 7.5 pH Units (5.0-8.0); Protein,Urine Negative (Neg-Trace); Urobilinogen,Urine Normal (Normal)
[2019-05-25] MEDS ORDERED: Isovue-370 500 ML BOTTLE IVP ONE (05:47)
[2019-05-25] MEDS ORDERED: cefTRIAXone 1,000 MG in 0.9 % Sodium Chloride Mini Bag 100 ML IVPB ONE (07:05)
[2019-05-25] MEDS ORDERED: Azithromycin 500 MG in 0.9 % Sodium Chloride 250 ML IVPB ONE (07:05)
[2019-05-25] MEDS ORDERED: Lactulose Oral Soln 20 GM/30 ML UDC PO PRN (12:56)
[2019-05-25] MEDS ORDERED: *HR* OxyCODONE/APAP 10/325 TABLET PO PRN (12:56)
[2019-05-25] MEDS ORDERED: ALPRAZolam 1 MG TABLET PO PRN (12:56)
[2019-05-25] MEDS ORDERED: 0.9 % Sodium Chloride 1,000 ML IVC SCH (13:00)
[2019-05-25] MEDS ORDERED: Insulin DETEMIR 100 UNIT/ML X5UNITS SQ SCH (13:00)
[2019-05-25] MEDS ORDERED: Mag Hydrox/Al Hydrox/Simeth 30 ML UDC PO PRN (13:00)
[2019-05-25] MEDS ORDERED: Aspirin Enteric Coated 81 MG Tablet PO SCH (13:00)
[2019-05-25] MEDS ORDERED: Naloxone 0.4 MG/ML INJ IVP PRN (13:00)
[2019-05-25] MEDS ORDERED: Ondansetron ODT 4 MG TAB.RAPDIS SL PRN (13:00)
[2019-05-25] MEDS ORDERED: Dextrose Gel 15 GM/37.5 ML TUBE PO PRN ×2 (13:20)
[2019-05-25] MEDS ORDERED: *HR* Dextrose 50 % in Water (Vial) 50 ML VIAL IVP PRN (13:20)
[2019-05-25] MEDS ORDERED: D5% in Water 1,000 ML IVC PRN (13:20)
[2019-05-25] MEDS: FLUoxetine 20 MG CAPSULE PO SCH (13:41)
[2019-05-25] MEDS: Aspirin Enteric Coated 81 MG Tablet PO SCH (14:12)
[2019-05-25] MEDS: carBAMazepine 200 MG TABLET PO SCH ×2 (14:21→20:20)
[2019-05-25] MEDS: Insulin LISPRO 300 UNITS/3 ML VIAL SQ SCH ×2 (17:35→20:19)
[2019-05-25] MEDS: Ipratropium/Albuterol Neb 3 ML IH PRN ×2 (18:41→21:36)
[2019-05-25] MEDS: DESIPRAMINE 50 MG PO SCH (20:20)
[2019-05-25] MEDS ORDERED: carBAMazepine 200 MG TABLET PO SCH (21:00)
[2019-05-25] MEDS: ALPRAZolam 1 MG TABLET PO PRN (21:16)
[2019-05-26] MEDS: Azithromycin 500 MG in 0.9 % Sodium Chloride 250 ML IVPB SCH (06:02)
[2019-05-26] MEDS: cefTRIAXone 2,000 MG in Water for inj. (sterile) 20 ML IVP SCH (06:02)
[2019-05-26 07:46] LABS: Basophils % 0.4 %; Eosinophils # 0.2 K/mcL (0.0-0.6); Eosinophils % 2.1 %; Hematocrit 30.6 % (35.3-44.9); Immature Granulocytes % 0.6 % (0-4); Lymphocytes # 0.8 K/mcL (0.6-4.6); Lymphocytes % 10.5 %; Mean Corpuscular HGB Conc 32.7 g/dL (31.6-35.5); Mean Corpuscular Hemoglobin 30.6 pg (28.0-33.3); Mean Corpuscular Volume 93.6 fL (83.0-100.0); Mean Platelet Volume 9.4 fL (9.4-12.4); Monocytes # 0.5 K/mcL (0.0-1.3); Monocytes % 7.4 %; Neutrophils # 5.6 K/mcL (1.6-8.9); Red Blood Count 3.27 M/mcL (3.82-4.97); Red Cell Distribution Width 13.7 % (11.5-14.5); White Blood Count 7.1 K/mcL (4.3-11.1)
[2019-05-26 07:52] LABS: Platelet Count 79 K/mcL (140-400)
[2019-05-26] MEDS: FLUoxetine 20 MG CAPSULE PO SCH (08:00)
[2019-05-26] MEDS: Aspirin Enteric Coated 81 MG Tablet PO SCH (08:01)
[2019-05-26] MEDS: Ipratropium/Albuterol Neb 3 ML IH PRN ×2 (08:01→11:29)
[2019-05-26] MEDS: levoFLOXacin 500 MG TABLET PO SCH (08:01)
[2019-05-26] MEDS: carBAMazepine 200 MG TABLET PO SCH ×2 (08:01→20:47)
[2019-05-26 08:02] LABS: BUN/Creatinine Ratio 16 (6-26); Blood Urea Nitrogen 17 mg/dL (8-23); Calcium 8.7 mg/dL (8.6-10.3); Carbon Dioxide 28 mEq/L (23-29); Chloride 102 mEq/L (98-107); Glucose 167 mg/dL (70-105); Osmolality,Calculated 287 (280-300); Potassium 4.4 mEq/L (3.5-5.1); Sodium 136 mEq/L (136-145); eGFR For African Americans > 60 (> 60); eGFR For Non-African Americans 53 (> 60)
[2019-05-26] MEDS: *HR* Enoxaparin 40 MG/0.4 ML SYRINGE SQ SCH (08:03)
[2019-05-26] MEDS: Insulin DETEMIR 100 UNIT/ML X5UNITS SQ SCH (08:05)
[2019-05-26] MEDS: Insulin LISPRO 300 UNITS/3 ML VIAL SQ SCH ×4 (08:06→20:50)
[2019-05-26 10:14] LABS: Adenovirus Not Detected (Not Detect); Bordetella Pertussis Not Detected (Not Detect); Chlamydophila pneumoniae Not Detected (Not Detect); Coronavirus 229E Not Detected (Not Detect); Coronavirus HKU1 Not Detected (Not Detect); Coronavirus NL63 Not Detected (Not Detect); Coronavirus OC43 Not Detected (Not Detect); Human Metapneumovirus Not Detected (Not Detect); Human Rhinovirus/Enterovirus Not Detected (Not Detect); Influenza A Subtype 2009 H1 Not Detected (Not Detect); Influenza A Untypeable Not Detected (Not Detect); Influenza B Not Detected (Not Detect); Mycoplasma pneumoniae Not Detected (Not Detect); Parainfluenza Virus 1 Not Detected (Not Detect); Parainfluenza Virus 2 Not Detected (Not Detect); Parainfluenza Virus 3 Not Detected (Not Detect); Parainfluenza Virus 4 Not Detected (Not Detect); Respiratory Syncytial Virus Not Detected (Not Detect)
[2019-05-26] MEDS: Furosemide 40 MG TABLET PO SCH (16:30)
[2019-05-26] MEDS: DESIPRAMINE 50 MG PO SCH (20:51)
[2019-05-27] MEDS: cefTRIAXone 2,000 MG in Water for inj. (sterile) 20 ML IVP SCH (05:57)
[2019-05-27] MEDS: Azithromycin 500 MG in 0.9 % Sodium Chloride 250 ML IVPB SCH (05:57)
[2019-05-27] MEDS: Insulin LISPRO 300 UNITS/3 ML VIAL SQ SCH ×4 (07:39→20:30)
[2019-05-27] MEDS: *HR* Enoxaparin 40 MG/0.4 ML SYRINGE SQ SCH (08:10)
[2019-05-27 08:11] LABS: Hemoglobin 9.5 g/dL (11.5-15.4); Mean Corpuscular HGB Conc 32.8 g/dL (31.6-35.5); Mean Corpuscular Hemoglobin 30.7 pg (28.0-33.3); Mean Corpuscular Volume 93.9 fL (83.0-100.0); Mean Platelet Volume 9.6 fL (9.4-12.4); Red Blood Count 3.09 M/mcL (3.82-4.97); Red Cell Distribution Width 13.7 % (11.5-14.5); White Blood Count 5.6 K/mcL (4.3-11.1)
[2019-05-27] MEDS: levoFLOXacin 500 MG TABLET PO SCH (08:11)
[2019-05-27] MEDS: Aspirin Enteric Coated 81 MG Tablet PO SCH (08:11)
[2019-05-27] MEDS: FLUoxetine 20 MG CAPSULE PO SCH (08:11)
[2019-05-27] MEDS: carBAMazepine 200 MG TABLET PO SCH ×2 (08:11→20:07)
[2019-05-27] MEDS: Insulin DETEMIR 100 UNIT/ML X5UNITS SQ SCH (08:12)
[2019-05-27] MEDS: Furosemide 40 MG TABLET PO SCH ×2 (08:12→16:15)
[2019-05-27 08:14] LABS: Platelet Count 85 K/mcL (140-400)
[2019-05-27 08:26] LABS: BUN/Creatinine Ratio 17 (6-26); Blood Urea Nitrogen 18 mg/dL (8-23); Calcium 8.7 mg/dL (8.6-10.3); Carbon Dioxide 29 mEq/L (23-29); Chloride 104 mEq/L (98-107); Glucose 101 mg/dL (70-105); Osmolality,Calculated 288 (280-300); Potassium 4.3 mEq/L (3.5-5.1); Sodium 138 mEq/L (136-145); eGFR For African Americans > 60 (> 60); eGFR For Non-African Americans 50 (> 60)
[2019-05-27] MEDS: Ipratropium/Albuterol Neb 3 ML IH PRN (19:16)
[2019-05-27] MEDS: DESIPRAMINE 50 MG PO SCH (20:07)
[2019-05-28] MEDS: ALPRAZolam 1 MG TABLET PO PRN (01:33)
[2019-05-28] MEDS: cefTRIAXone 2,000 MG in Water for inj. (sterile) 20 ML IVP SCH (06:30)
[2019-05-28] MEDS: Azithromycin 500 MG in 0.9 % Sodium Chloride 250 ML IVPB SCH (06:31)
[2019-05-28] MEDS: Aspirin Enteric Coated 81 MG Tablet PO SCH (08:55)
[2019-05-28] MEDS: FLUoxetine 20 MG CAPSULE PO SCH (08:55)
[2019-05-28] MEDS: levoFLOXacin 500 MG TABLET PO SCH (08:56)
[2019-05-28] MEDS: Furosemide 40 MG TABLET PO SCH (08:56)
[2019-05-28] MEDS: carBAMazepine 200 MG TABLET PO SCH (08:56)
[2019-05-28] MEDS: *HR* Enoxaparin 40 MG/0.4 ML SYRINGE SQ SCH ×2 (08:56→09:02)
[2019-05-28] MEDS: Insulin DETEMIR 100 UNIT/ML X5UNITS SQ SCH (08:57)
[2019-05-28] MEDS: Insulin LISPRO 300 UNITS/3 ML VIAL SQ SCH (08:57)
[2019-05-28 09:43] VITALS: BP 139/62
[2019-05-28 09:45] LABS: Hematocrit 29.4 % (35.3-44.9); Hemoglobin 9.7 g/dL (11.5-15.4); Mean Corpuscular Hemoglobin 30.4 pg (28.0-33.3); Mean Corpuscular Volume 92.2 fL (83.0-100.0); Mean Platelet Volume 9.6 fL (9.4-12.4); Platelet Count 103 K/mcL (140-400); Red Blood Count 3.19 M/mcL (3.82-4.97); Red Cell Distribution Width 13.2 % (11.5-14.5); White Blood Count 5.4 K/mcL (4.3-11.1)
== END 2019-05-28 12:28 | disposition home or self-care (01) | DRG 291 ==
LOC: INPPIK 03:00 → EMEROOPIK 03:00 → INPPIK 09:10
PROVIDERS: ADMIT Family Medicine; ATTEND Nurse Practitioner Acute Care

== ENCOUNTER 2020-03-01 15:10 | Inpatient (IN) ==
[2020-03-01] MEDS ORDERED: 0.9 % Sodium Chloride 500 ML IVC ONE (15:22)
[2020-03-01 15:49] LABS: Basophils % 0.5 %; Eosinophils # 0.2 K/mcL (0.0-0.6); Eosinophils % 1.9 %; Hematocrit 33.1 % (35.3-44.9); Hemoglobin 11.1 g/dL (11.5-15.4); Immature Granulocytes % 0.6 % (0-4); Lymphocytes % 11.9 %; Mean Corpuscular HGB Conc 33.5 g/dL (31.6-35.5); Mean Corpuscular Hemoglobin 31.4 pg (28.0-33.3); Mean Corpuscular Volume 93.5 fL (83.0-100.0); Mean Platelet Volume 10.1 fL (9.4-12.4); Monocytes # 0.9 K/mcL (0.0-1.3); Monocytes % 10.5 %; Neutrophils # 6.3 K/mcL (1.6-8.9); Platelet Count 103 K/mcL (140-400); Red Blood Count 3.54 M/mcL (3.82-4.97); Red Cell Distribution Width 15.2 % (11.5-14.5); Segmented Neutrophils % 74.6 %; White Blood Count 8.4 K/mcL (4.3-11.1)
[2020-03-01 15:55] LABS: Bilirubin,Urine Small (Negative); Blood,Urine Negative (Negative); Clarity,Urine Slightly Cloudy (Clear); Color,Urine Yellow (Yellow); Glucose,Urine (UA) Normal (Normal); Ketones,Urine Trace mg/dL (Negative); Leukocyte Esterase,Urine Trace (Negative); Nitrite,Urine Negative (Negative); Protein,Urine Negative (Neg-Trace); Urobilinogen,Urine Normal (Normal)
[2020-03-01 15:59] LABS: INR 1.5; Prothrombin Time 17.4 Seconds (9.4-12.1)
[2020-03-01 16:00] LABS: Activated Partial Thrombo Time 30.4 Seconds (26.0-36.0)
[2020-03-01 16:02] LABS: Bacteria,Urine Moderate per hpf (None-Few); Hyaline Casts,Urine Moderate per lpf (None Seen); RBC,Urine 0-3 per hpf (0-3); Squamous Epithelial Cell,Urine Few per hpf (None-Few)
[2020-03-01 16:06] LABS: Alanine Aminotransferase 10 Units/L (7-52); Albumin 2.8 g/dL (3.5-5.7); Albumin/Globulin Ratio 0.7 (1.1-2.2); Alkaline Phosphatase 53 Units/L (34-104); Aspartate Amino Transferase 31 Units/L (13-39); BUN/Creatinine Ratio 13 (6-26); Bilirubin,Total 1.2 mg/dL (0.3-1.0); Blood Urea Nitrogen 27 mg/dL (8-23); Calcium 8.9 mg/dL (8.6-10.3); Carbon Dioxide 29 mEq/L (23-29); Chloride 99 mEq/L (98-107); Creatine Kinase 101 Units/L (30-223); Globulin 4.3 g/dL (2.4-3.5); Glucose 160 mg/dL (70-105); Osmolality,Calculated 295 (280-300); Sodium 138 mEq/L (136-145); Total Protein 7.1 g/dL (6.4-8.9); Troponin I < 0.03 ng/mL (< 0.04); eGFR For African Americans 29 (> 60); eGFR For Non-African Americans 24 (> 60)
[2020-03-01] MEDS: 0.9 % Sodium Chloride 1,000 ML IVC SCH (16:15)
[2020-03-01 16:19] LABS: Thyroid Stimulating Hormone 2.984 mcIU/mL (0.340-5.600)
[2020-03-01] MEDS ORDERED: cefTRIAXone 2,000 MG in 0.9 % Sodium Chloride Mini Bag 100 ML IVPB ONE (16:30)
[2020-03-01] MEDS ORDERED: Mag Hydrox/Al Hydrox/Simeth 30 ML UDC PO PRN (18:12)
[2020-03-01] MEDS ORDERED: Ondansetron 4 MG/2 ML VIAL IVP PRN (18:12)
[2020-03-01] MEDS ORDERED: MOM Conc 10 ML UD.LIQ PO PRN (18:12)
[2020-03-01] MEDS ORDERED: Acetaminophen 325 MG TABLET PO PRN (18:12)
[2020-03-01] MEDS ORDERED: Naloxone 0.4 MG/ML INJ IVP PRN (18:12)
[2020-03-01] MEDS ORDERED: Dextrose Gel 15 GM/37.5 ML TUBE PO PRN ×2 (18:25)
[2020-03-01] MEDS ORDERED: D5% in Water 1,000 ML IVC PRN (18:25)
[2020-03-01] MEDS ORDERED: *HR* Dextrose 50 % in Water (Vial) 50 ML VIAL IVP PRN (18:25)
[2020-03-01] MEDS ORDERED: *HR* OxyCODONE/APAP 10/325 TABLET PO PRN (18:43)
[2020-03-01] MEDS: Insulin LISPRO 300 UNITS/3 ML VIAL SQ SCH (21:12)
[2020-03-01] MEDS: Metoprolol 100 MG TABLET PO SCH (21:28)
[2020-03-02] MEDS: 0.9 % Sodium Chloride 1,000 ML IVC SCH ×3 (01:48→20:16)
[2020-03-02] MEDS ORDERED: cefTRIAXone 2,000 MG in 0.9 % Sodium Chloride Mini Bag 100 ML IVPB SCH (09:00)
[2020-03-02] MEDS ORDERED: Albuterol 2.5 MG/3 ML NEBULIZER IH PRN (09:09)
[2020-03-02 09:24] LABS: Basophils % 0.4 %; Eosinophils # 0.2 K/mcL (0.0-0.6); Hematocrit 31.4 % (35.3-44.9); Hemoglobin 10.4 g/dL (11.5-15.4); Immature Granulocytes % 0.5 % (0-4); Lymphocytes # 1.1 K/mcL (0.6-4.6); Lymphocytes % 14.5 %; Mean Corpuscular HGB Conc 33.1 g/dL (31.6-35.5); Mean Corpuscular Hemoglobin 31.2 pg (28.0-33.3); Mean Corpuscular Volume 94.3 fL (83.0-100.0); Mean Platelet Volume 10.8 fL (9.4-12.4); Monocytes # 0.8 K/mcL (0.0-1.3); Monocytes % 11.4 %; Neutrophils # 5.1 K/mcL (1.6-8.9); Red Blood Count 3.33 M/mcL (3.82-4.97); Red Cell Distribution Width 15.2 % (11.5-14.5); Segmented Neutrophils % 70.2 %; White Blood Count 7.3 K/mcL (4.3-11.1)
[2020-03-02 09:34] LABS: Platelet Count 93 K/mcL (140-400)
[2020-03-02 09:47] LABS: Calcium 8.2 mg/dL (8.6-10.3); Potassium 2.9 mEq/L (3.5-5.1)
[2020-03-02] MEDS: Insulin LISPRO 300 UNITS/3 ML VIAL SQ SCH ×4 (09:49→20:12)
[2020-03-02] MEDS: FLUoxetine 20 MG CAPSULE PO SCH (09:50)
[2020-03-02] MEDS: Aspirin Enteric Coated 81 MG Tablet PO SCH (09:50)
[2020-03-02] MEDS: carBAMazepine 200 MG TABLET PO SCH ×2 (09:50→20:16)
[2020-03-02] MEDS: Metoprolol 100 MG TABLET PO SCH ×2 (09:55→20:16)
[2020-03-02 09:57] LABS: ABG Base Excess 0 mEq/L (-2 to 3); ABG HCO3 24 mEq/L (21-27); ABG Oxygen Saturation 95 % (95-98); ABG PCO2 37 mmHg (35-45); ABG PH 7.43 pH Units (7.32-7.45); ABG PO2 76 mmHg (85-104); ABG TCO2 26 mEq/L (20-26)
[2020-03-02] MEDS ORDERED: *HR* LORazepam 2 MG/ML VIAL ONE (12:48)
[2020-03-02] MEDS: *HR* LORazepam 2 MG/ML VIAL IVP ONE ×2 (12:51→12:57)
[2020-03-02] MEDS: Spironolactone 25 MG TABLET PO SCH (17:14)
[2020-03-02] MEDS: cefTRIAXone 2,000 MG in Water for inj. (sterile) 20 ML IVP SCH (17:14)
[2020-03-02] MEDS: *HR* LORazepam 0.5 MG TABLET PO PRN (20:51)
[2020-03-03] MEDS: 0.9 % Sodium Chloride 1,000 ML IVC SCH (05:44)
[2020-03-03 06:48] LABS: Basophils % 0.5 %; Eosinophils # 0.2 K/mcL (0.0-0.6); Eosinophils % 4.1 %; Hematocrit 31.9 % (35.3-44.9); Hemoglobin 10.5 g/dL (11.5-15.4); Immature Granulocytes % 0.5 % (0-4); Lymphocytes # 1.1 K/mcL (0.6-4.6); Lymphocytes % 18.1 %; Mean Corpuscular HGB Conc 32.9 g/dL (31.6-35.5); Mean Corpuscular Hemoglobin 31.4 pg (28.0-33.3); Mean Corpuscular Volume 95.5 fL (83.0-100.0); Mean Platelet Volume 10.5 fL (9.4-12.4); Monocytes # 0.6 K/mcL (0.0-1.3); Monocytes % 10.2 %; Neutrophils # 3.9 K/mcL (1.6-8.9); Red Blood Count 3.34 M/mcL (3.82-4.97); Red Cell Distribution Width 15.3 % (11.5-14.5); Segmented Neutrophils % 66.6 %; White Blood Count 5.8 K/mcL (4.3-11.1)
[2020-03-03 07:01] LABS: Potassium 3.2 mEq/L (3.5-5.1)
[2020-03-03 07:36] LABS: Platelet Count 73 K/mcL (140-400)
[2020-03-03] MEDS: Insulin LISPRO 300 UNITS/3 ML VIAL SQ SCH ×4 (09:23→20:40)
[2020-03-03] MEDS: FLUoxetine 20 MG CAPSULE PO SCH (09:23)
[2020-03-03] MEDS: Spironolactone 25 MG TABLET PO SCH (09:23)
[2020-03-03] MEDS: Aspirin Enteric Coated 81 MG Tablet PO SCH (09:23)
[2020-03-03] MEDS: carBAMazepine 200 MG TABLET PO SCH ×2 (09:23→20:39)
[2020-03-03] MEDS: Metoprolol 100 MG TABLET PO SCH ×2 (09:28→20:39)
[2020-03-03] MEDS: cefTRIAXone 2,000 MG in Water for inj. (sterile) 20 ML IVP SCH (14:58)
[2020-03-03] MEDS: Lactulose Oral Soln 20 GM/30 ML UDC PO PRN ×2 (14:58→20:38)
[2020-03-03] MEDS: *HR* LORazepam 0.5 MG TABLET PO PRN (20:39)
[2020-03-04] MEDS ORDERED: *HR* LORazepam 2 MG/ML VIAL IVP ONE (00:27)
[2020-03-04 07:03] LABS: Basophils % 0.6 %; Eosinophils # 0.2 K/mcL (0.0-0.6); Eosinophils % 3.6 %; Hematocrit 32.7 % (35.3-44.9); Hemoglobin 10.8 g/dL (11.5-15.4); Immature Granulocytes % 0.5 % (0-4); Lymphocytes # 0.9 K/mcL (0.6-4.6); Lymphocytes % 13.3 %; Mean Corpuscular Hemoglobin 31.6 pg (28.0-33.3); Mean Corpuscular Volume 95.6 fL (83.0-100.0); Mean Platelet Volume 10.5 fL (9.4-12.4); Monocytes # 0.6 K/mcL (0.0-1.3); Monocytes % 9.9 %; Neutrophils # 4.6 K/mcL (1.6-8.9); Red Blood Count 3.42 M/mcL (3.82-4.97); Red Cell Distribution Width 15.4 % (11.5-14.5); Segmented Neutrophils % 72.1 %; White Blood Count 6.4 K/mcL (4.3-11.1)
[2020-03-04 07:14] LABS: Platelet Count 84 K/mcL (140-400)
[2020-03-04 07:15] LABS: Calcium 8.2 mg/dL (8.6-10.3); Potassium 3.6 mEq/L (3.5-5.1)
[2020-03-04] MEDS: Spironolactone 25 MG TABLET PO SCH (08:04)
[2020-03-04] MEDS: Insulin LISPRO 300 UNITS/3 ML VIAL SQ SCH ×3 (08:04→16:35)
[2020-03-04] MEDS: carBAMazepine 200 MG TABLET PO SCH (08:04)
[2020-03-04] MEDS: FLUoxetine 20 MG CAPSULE PO SCH (08:04)
[2020-03-04] MEDS: Aspirin Enteric Coated 81 MG Tablet PO SCH (08:04)
[2020-03-04] MEDS: Metoprolol 100 MG TABLET PO SCH (08:04)
[2020-03-04] MEDS ORDERED: 0.9 % Sodium Chloride 500 ML IV ONE (12:41)
[2020-03-04 13:03] LABS: ABG Base Excess -1 mEq/L (-2 to 3); ABG HCO3 24 mEq/L (21-27); ABG Oxygen Saturation 94 % (95-98); ABG PCO2 38 mmHg (35-45); ABG PO2 69 mmHg (85-104); ABG TCO2 25 mEq/L (20-26)
[2020-03-04 15:47] VITALS: BP 134/65
== END 2020-03-04 16:56 | disposition other institution (70) | DRG 689 ==
LOC: INPPIK 15:10 → EMEROOPIK 15:10 → INPPIK 18:56
PROVIDERS: ADMIT Family Medicine; ATTEND Family Medicine

== ENCOUNTER 2020-03-04 16:45 | Inpatient (IN) ==
[2020-03-04] MEDS ORDERED: ALPRAZolam 1 MG TABLET PO PRN (16:49)
[2020-03-04] MEDS ORDERED: *HR* OxyCODONE/APAP 10/325 TABLET PO PRN (16:49)
[2020-03-04] MEDS ORDERED: BYDUREON 2 MG SQ SCH (17:00)
[2020-03-04] MEDS: Furosemide 20 MG TABLET PO SCH (17:20)
[2020-03-04] MEDS: Lactobacillus 1 EACH CAP.SPRINK PO SCH (20:03)
[2020-03-04] MEDS: Metoprolol 100 MG TABLET PO SCH (20:03)
[2020-03-04] MEDS: carBAMazepine 200 MG TABLET PO SCH (20:03)
[2020-03-04] MEDS ORDERED: *HR* Dextrose 50 % in Water (Vial) 50 ML VIAL IVP PRN (20:06)
[2020-03-04] MEDS ORDERED: Dextrose Gel 15 GM/37.5 ML TUBE PO PRN ×2 (20:06)
[2020-03-04] MEDS ORDERED: D5% in Water 1,000 ML IVC PRN (20:06)
[2020-03-04] MEDS: Insulin LISPRO 300 UNITS/3 ML VIAL SQ SCH (21:47)
[2020-03-05] MEDS: Lactulose Oral Soln 20 GM/30 ML UDC PO PRN ×2 (06:03→20:22)
[2020-03-05] MEDS: Furosemide 20 MG TABLET PO SCH ×2 (08:16→16:36)
[2020-03-05] MEDS: Spironolactone 25 MG TABLET PO SCH (08:16)
[2020-03-05] MEDS: FLUoxetine 20 MG CAPSULE PO SCH (08:16)
[2020-03-05] MEDS: *HR* SitaGLIPtin 25 MG TABLET PO SCH (08:16)
[2020-03-05] MEDS: Aspirin Enteric Coated 81 MG Tablet PO SCH (08:16)
[2020-03-05] MEDS: Lactobacillus 1 EACH CAP.SPRINK PO SCH ×2 (08:16→20:23)
[2020-03-05] MEDS: carBAMazepine 200 MG TABLET PO SCH ×2 (08:16→20:23)
[2020-03-05] MEDS: Insulin LISPRO 300 UNITS/3 ML VIAL SQ SCH ×4 (08:17→20:26)
[2020-03-05] MEDS: Metoprolol 100 MG TABLET PO SCH ×2 (08:17→20:22)
[2020-03-05] MEDS ORDERED: Insulin DETEMIR 100 UNIT/ML X5UNITS SQ SCH (09:00)
[2020-03-05] MEDS ORDERED: NON-FORMULARY MEDICATION 1 EACH EACH (Pantoprazole Sodium [Protonix] 40 MG) PO SCH (09:00)
[2020-03-05] MEDS: Insulin DETEMIR 100 UNIT/ML X5UNITS SQ SCH (20:25)
[2020-03-06 06:17] LABS: Hematocrit 33.4 % (35.3-44.9); Mean Corpuscular HGB Conc 32.9 g/dL (31.6-35.5); Mean Corpuscular Hemoglobin 31.5 pg (28.0-33.3); Mean Corpuscular Volume 95.7 fL (83.0-100.0); Mean Platelet Volume 9.6 fL (9.4-12.4); Red Blood Count 3.49 M/mcL (3.82-4.97); Red Cell Distribution Width 15.2 % (11.5-14.5); White Blood Count 6.3 K/mcL (4.3-11.1)
[2020-03-06 06:34] LABS: Platelet Count 86 K/mcL (140-400)
[2020-03-06 06:35] LABS: Calcium 8.5 mg/dL (8.6-10.3)
[2020-03-06] MEDS: Insulin LISPRO 300 UNITS/3 ML VIAL SQ SCH ×4 (08:36→21:03)
[2020-03-06] MEDS: *HR* SitaGLIPtin 25 MG TABLET PO SCH (08:37)
[2020-03-06] MEDS: Lactobacillus 1 EACH CAP.SPRINK PO SCH ×2 (08:37→21:02)
[2020-03-06] MEDS: Furosemide 20 MG TABLET PO SCH ×2 (08:37→16:58)
[2020-03-06] MEDS: Insulin DETEMIR 100 UNIT/ML X5UNITS SQ SCH ×2 (08:37→21:02)
[2020-03-06] MEDS: Metoprolol 100 MG TABLET PO SCH ×2 (08:38→21:02)
[2020-03-06] MEDS: carBAMazepine 200 MG TABLET PO SCH ×2 (08:38→21:02)
[2020-03-06] MEDS: FLUoxetine 20 MG CAPSULE PO SCH (08:38)
[2020-03-06] MEDS: Aspirin Enteric Coated 81 MG Tablet PO SCH (08:38)
[2020-03-06] MEDS: Spironolactone 25 MG TABLET PO SCH (08:38)
[2020-03-06] MEDS ORDERED: BYDUREON 2 MG SQ SCH (09:00)
[2020-03-06] MEDS: Lactulose Oral Soln 20 GM/30 ML UDC PO PRN (09:04)
[2020-03-07] MEDS: ALPRAZolam 0.5 MG TABLET PO PRN (01:20)
[2020-03-07] MEDS: Insulin LISPRO 300 UNITS/3 ML VIAL SQ SCH ×4 (09:34→21:55)
[2020-03-07] MEDS: Spironolactone 25 MG TABLET PO SCH (09:36)
[2020-03-07] MEDS: *HR* SitaGLIPtin 25 MG TABLET PO SCH (09:36)
[2020-03-07] MEDS: carBAMazepine 200 MG TABLET PO SCH ×2 (09:36→21:48)
[2020-03-07] MEDS: Metoprolol 100 MG TABLET PO SCH ×2 (09:36→21:48)
[2020-03-07] MEDS: Lactobacillus 1 EACH CAP.SPRINK PO SCH ×2 (09:36→21:48)
[2020-03-07] MEDS: FLUoxetine 20 MG CAPSULE PO SCH (09:36)
[2020-03-07] MEDS: Insulin DETEMIR 100 UNIT/ML X5UNITS SQ SCH ×2 (09:36→21:53)
[2020-03-07] MEDS: Furosemide 20 MG TABLET PO SCH ×2 (09:36→17:56)
[2020-03-07] MEDS: Aspirin Enteric Coated 81 MG Tablet PO SCH (09:37)
[2020-03-08] MEDS: *HR* SitaGLIPtin 25 MG TABLET PO SCH (08:07)
[2020-03-08] MEDS: carBAMazepine 200 MG TABLET PO SCH ×2 (08:07→20:03)
[2020-03-08] MEDS: FLUoxetine 20 MG CAPSULE PO SCH (08:07)
[2020-03-08] MEDS: Insulin DETEMIR 100 UNIT/ML X5UNITS SQ SCH ×2 (08:07→20:21)
[2020-03-08] MEDS: Spironolactone 25 MG TABLET PO SCH (08:07)
[2020-03-08] MEDS: Lactobacillus 1 EACH CAP.SPRINK PO SCH ×2 (08:08→20:03)
[2020-03-08] MEDS: Insulin LISPRO 300 UNITS/3 ML VIAL SQ SCH ×4 (08:08→20:11)
[2020-03-08] MEDS: Aspirin Enteric Coated 81 MG Tablet PO SCH (08:08)
[2020-03-08] MEDS: Furosemide 20 MG TABLET PO SCH ×2 (08:08→16:11)
[2020-03-08] MEDS: Metoprolol 100 MG TABLET PO SCH ×2 (08:11→20:21)
[2020-03-08] MEDS: ALPRAZolam 0.5 MG TABLET PO PRN (20:03)
[2020-03-08] MEDS: Lactulose Oral Soln 20 GM/30 ML UDC PO PRN (20:03)
[2020-03-09 05:30] LABS: Basophils % 0.5 %; Eosinophils # 0.2 K/mcL (0.0-0.6); Hematocrit 33.4 % (35.3-44.9); Hemoglobin 10.9 g/dL (11.5-15.4); Immature Granulocytes % 0.7 % (0-4); Lymphocytes % 15.8 %; Mean Corpuscular HGB Conc 32.6 g/dL (31.6-35.5); Mean Corpuscular Hemoglobin 31.1 pg (28.0-33.3); Mean Corpuscular Volume 95.4 fL (83.0-100.0); Mean Platelet Volume 10.3 fL (9.4-12.4); Monocytes # 0.7 K/mcL (0.0-1.3); Monocytes % 10.8 %; Neutrophils # 4.1 K/mcL (1.6-8.9); Red Cell Distribution Width 15.2 % (11.5-14.5); Segmented Neutrophils % 68.2 %
[2020-03-09 05:58] LABS: Calcium 8.8 mg/dL (8.6-10.3); Potassium 4.4 mEq/L (3.5-5.1)
[2020-03-09 06:02] LABS: Platelet Count 93 K/mcL (140-400)
[2020-03-09] MEDS: Insulin DETEMIR 100 UNIT/ML X5UNITS SQ SCH ×2 (09:44→19:49)
[2020-03-09] MEDS: Lactulose Oral Soln 20 GM/30 ML UDC PO PRN ×2 (09:44→19:49)
[2020-03-09] MEDS: FLUoxetine 20 MG CAPSULE PO SCH (09:45)
[2020-03-09] MEDS: Aspirin Enteric Coated 81 MG Tablet PO SCH (09:45)
[2020-03-09] MEDS: carBAMazepine 200 MG TABLET PO SCH ×2 (09:45→19:47)
[2020-03-09] MEDS: Spironolactone 25 MG TABLET PO SCH (09:46)
[2020-03-09] MEDS: Metoprolol 100 MG TABLET PO SCH ×2 (09:46→19:48)
[2020-03-09] MEDS: Insulin LISPRO 300 UNITS/3 ML VIAL SQ SCH ×4 (09:47→21:10)
[2020-03-09] MEDS: Furosemide 20 MG TABLET PO SCH ×2 (09:47→17:37)
[2020-03-09] MEDS: Lactobacillus 1 EACH CAP.SPRINK PO SCH ×2 (09:47→19:47)
[2020-03-09] MEDS: *HR* SitaGLIPtin 25 MG TABLET PO SCH (09:47)
[2020-03-09] MEDS: Sennosides/Docusate Sodium TABLET PO SCH ×2 (11:08→19:49)
[2020-03-09] MEDS ORDERED: Bisacodyl 10 MG RECTAL SUPPOSITORY RC PRN (23:59)
[2020-03-10 06:37] LABS: Hematocrit 32.4 % (35.3-44.9); Hemoglobin 10.7 g/dL (11.5-15.4); Mean Corpuscular Hemoglobin 31.7 pg (28.0-33.3); Mean Corpuscular Volume 95.9 fL (83.0-100.0); Mean Platelet Volume 9.8 fL (9.4-12.4); Platelet Count 103 K/mcL (140-400); Red Blood Count 3.38 M/mcL (3.82-4.97); Red Cell Distribution Width 15.1 % (11.5-14.5); White Blood Count 8.1 K/mcL (4.3-11.1)
[2020-03-10 06:54] LABS: Magnesium 2.3 mg/dL (1.6-2.6); Potassium 4.7 mEq/L (3.5-5.1)
[2020-03-10] MEDS: Insulin LISPRO 300 UNITS/3 ML VIAL SQ SCH ×4 (07:41→22:14)
[2020-03-10] MEDS: Sennosides/Docusate Sodium TABLET PO SCH ×2 (08:13→20:39)
[2020-03-10] MEDS: ALPRAZolam 0.5 MG TABLET PO PRN (08:13)
[2020-03-10] MEDS: Spironolactone 25 MG TABLET PO SCH (08:13)
[2020-03-10] MEDS: FLUoxetine 20 MG CAPSULE PO SCH (08:14)
[2020-03-10] MEDS: carBAMazepine 200 MG TABLET PO SCH ×2 (08:14→20:40)
[2020-03-10] MEDS: Lactobacillus 1 EACH CAP.SPRINK PO SCH ×2 (08:14→20:38)
[2020-03-10] MEDS: Furosemide 20 MG TABLET PO SCH ×2 (08:14→15:39)
[2020-03-10] MEDS: *HR* SitaGLIPtin 25 MG TABLET PO SCH (08:14)
[2020-03-10] MEDS: Aspirin Enteric Coated 81 MG Tablet PO SCH (08:14)
[2020-03-10] MEDS: Metoprolol 100 MG TABLET PO SCH ×2 (08:19→22:44)
[2020-03-10] MEDS: Insulin DETEMIR 100 UNIT/ML X5UNITS SQ SCH ×2 (08:23→22:29)
[2020-03-10] MEDS ORDERED: QUEtiapine Fumarate 25 MG TABLET PO SCH (10:40)
[2020-03-10] MEDS: Lactulose Oral Soln 20 GM/30 ML UDC PO SCH ×2 (15:39→20:39)
[2020-03-11] MEDS: Insulin LISPRO 300 UNITS/3 ML VIAL SQ SCH ×4 (07:30→19:48)
[2020-03-11] MEDS: Sennosides/Docusate Sodium TABLET PO SCH ×2 (07:53→19:36)
[2020-03-11] MEDS: Furosemide 20 MG TABLET PO SCH ×2 (07:53→16:19)
[2020-03-11] MEDS: Metoprolol 100 MG TABLET PO SCH ×2 (07:53→19:37)
[2020-03-11] MEDS: Lactobacillus 1 EACH CAP.SPRINK PO SCH ×2 (07:53→19:36)
[2020-03-11] MEDS: ALPRAZolam 0.5 MG TABLET PO PRN (07:54)
[2020-03-11] MEDS: carBAMazepine 200 MG TABLET PO SCH ×2 (07:54→19:36)
[2020-03-11] MEDS: FLUoxetine 20 MG CAPSULE PO SCH (07:54)
[2020-03-11] MEDS: Lactulose Oral Soln 20 GM/30 ML UDC PO SCH ×3 (07:54→19:37)
[2020-03-11] MEDS: Aspirin Enteric Coated 81 MG Tablet PO SCH (07:54)
[2020-03-11] MEDS: *HR* SitaGLIPtin 25 MG TABLET PO SCH (07:54)
[2020-03-11] MEDS: Spironolactone 25 MG TABLET PO SCH (07:54)
[2020-03-11] MEDS: Insulin DETEMIR 100 UNIT/ML X5UNITS SQ SCH ×2 (08:42→19:37)
[2020-03-11] MEDS ORDERED: Lactulose Oral Soln 20 GM/30 ML UDC PO SCH (15:00)
[2020-03-11] MEDS ORDERED: Lactulose Oral Soln 20 GM/30 ML UDC PO ONE (17:29)
[2020-03-12] MEDS: Insulin LISPRO 300 UNITS/3 ML VIAL SQ SCH ×4 (08:00→21:00)
[2020-03-12] MEDS: Lactulose Oral Soln 20 GM/30 ML UDC PO SCH ×3 (08:13→20:50)
[2020-03-12] MEDS: Aspirin Enteric Coated 81 MG Tablet PO SCH (08:14)
[2020-03-12] MEDS: carBAMazepine 200 MG TABLET PO SCH ×2 (08:17→20:49)
[2020-03-12] MEDS: Sennosides/Docusate Sodium TABLET PO SCH ×2 (08:17→20:50)
[2020-03-12] MEDS: Lactobacillus 1 EACH CAP.SPRINK PO SCH ×2 (08:17→20:49)
[2020-03-12] MEDS: FLUoxetine 20 MG CAPSULE PO SCH (08:17)
[2020-03-12] MEDS: *HR* SitaGLIPtin 25 MG TABLET PO SCH (08:17)
[2020-03-12] MEDS: Metoprolol 100 MG TABLET PO SCH ×2 (08:17→20:53)
[2020-03-12 08:40] LABS: Hematocrit 33.6 % (35.3-44.9); Mean Corpuscular HGB Conc 32.7 g/dL (31.6-35.5); Mean Corpuscular Hemoglobin 31.4 pg (28.0-33.3); Mean Platelet Volume 10.3 fL (9.4-12.4); Platelet Count 111 K/mcL (140-400); Red Cell Distribution Width 15.1 % (11.5-14.5); White Blood Count 8.3 K/mcL (4.3-11.1)
[2020-03-12 09:14] LABS: Albumin 2.6 g/dL (3.5-5.7); Albumin/Globulin Ratio 0.6 (1.1-2.2); Bilirubin,Total 1.1 mg/dL (0.3-1.0); Calcium 9.2 mg/dL (8.6-10.3); Globulin 4.4 g/dL (2.4-3.5); Magnesium 2.1 mg/dL (1.6-2.6); Phosphorous 3.1 mg/dL (2.7-4.5); Potassium 4.5 mEq/L (3.5-5.1)
[2020-03-12] MEDS: Insulin DETEMIR 100 UNIT/ML X5UNITS SQ SCH ×2 (14:31→20:53)
[2020-03-12] MEDS: ALPRAZolam 0.5 MG TABLET PO PRN (20:49)
[2020-03-13] MEDS ORDERED: *HR* LORazepam 2 MG/ML VIAL IVP ONE (01:21)
[2020-03-13] MEDS: Insulin LISPRO 300 UNITS/3 ML VIAL SQ SCH ×3 (10:53→22:24)
[2020-03-13] MEDS: Insulin DETEMIR 100 UNIT/ML X5UNITS SQ SCH ×2 (11:00→21:37)
[2020-03-13] MEDS: *HR* SitaGLIPtin 25 MG TABLET PO SCH (17:48)
[2020-03-13] MEDS: Sennosides/Docusate Sodium TABLET PO SCH ×2 (17:48→20:33)
[2020-03-13] MEDS: Aspirin Enteric Coated 81 MG Tablet PO SCH (17:48)
[2020-03-13] MEDS: Metoprolol 100 MG TABLET PO SCH (17:48)
[2020-03-13] MEDS: Lactobacillus 1 EACH CAP.SPRINK PO SCH ×2 (17:48→20:33)
[2020-03-13] MEDS: carBAMazepine 200 MG TABLET PO SCH ×2 (17:49→20:33)
[2020-03-13] MEDS: FLUoxetine 20 MG CAPSULE PO SCH (17:49)
[2020-03-13] MEDS: Lactulose Oral Soln 20 GM/30 ML UDC PO SCH ×3 (17:50→20:33)
[2020-03-14] MEDS: Metoprolol 100 MG TABLET PO SCH ×3 (03:02→21:11)
[2020-03-14] MEDS: Aspirin Enteric Coated 81 MG Tablet PO SCH (08:36)
[2020-03-14] MEDS: *HR* SitaGLIPtin 25 MG TABLET PO SCH (08:36)
[2020-03-14] MEDS: FLUoxetine 20 MG CAPSULE PO SCH (08:36)
[2020-03-14] MEDS: Lactobacillus 1 EACH CAP.SPRINK PO SCH ×2 (08:36→21:03)
[2020-03-14] MEDS: Sennosides/Docusate Sodium TABLET PO SCH ×2 (08:36→21:03)
[2020-03-14] MEDS: Insulin LISPRO 300 UNITS/3 ML VIAL SQ SCH ×4 (08:36→21:44)
[2020-03-14] MEDS: ALPRAZolam 0.5 MG TABLET PO PRN (08:36)
[2020-03-14] MEDS: carBAMazepine 200 MG TABLET PO SCH ×2 (08:36→21:02)
[2020-03-14] MEDS: Lactulose Oral Soln 20 GM/30 ML UDC PO SCH ×3 (08:37→21:03)
[2020-03-14] MEDS: Insulin DETEMIR 100 UNIT/ML X5UNITS SQ SCH ×2 (08:37→22:59)
[2020-03-14 19:02] VITALS: BP 114/58
== END 2020-03-14 22:40 | disposition short-term general hospital (02) | DRG 689 ==
LOC: INPPIK 17:06
PROVIDERS: ADMIT Family Medicine; ATTEND Family Medicine